=== PATIENT | male | born 1985 | race Hispanic/Latino ===

== ENCOUNTER 2017-03-18 01:32 | Emergency (ER) | payer SELFPAY ==
[~2017-03-18] VITALS: Ht 175.3 cm; Wt 91.8 kg
[~2017-03-18 01:32] MED LIST: BENADRYL DF25 MG IM; BENADRYL25 MG PO; DEPO-MEDROL80 MG/ML IM; NO; SOLU-MEDROL125 MG IM; [UNRECOGNIZED DRUG - OTHER]
[2017-03-18 02:57] VITALS: BP 122/68
== END 2017-03-18 03:00 | disposition home or self-care (01) | DRG 605 ==
LOC: ED 01:32
PROC: 0HQ0XZZ Repair Scalp Skin, External Approach (ICD-10-PCS; principal; 2017-03-18)
DX: S01.01XA Laceration without foreign body of scalp, initial encounter (principal); Y04.2XXA Assault by strike against or bumped into by another person, initial encounter; Y92.009 Unspecified place in unspecified non-institutional (private) residence as the place of occurrence of the external cause

== ENCOUNTER 2018-07-03 15:00 | Emergency (ER) | payer OTHER ==
[~2018-07-03] VITALS: Ht 175.3 cm; Wt 90.0 kg
[2018-07-03] MEDS ORDERED: MOTRIN400 MG PO (17:47)
[2018-07-03] MEDS ORDERED: HYDROCO/APAP1 TA9 PO (17:47)
[2018-07-03 18:08] VITALS: BP 157/92
== END 2018-07-03 18:30 | disposition home or self-care (01) | DRG 563 ==
LOC: ED 15:00
PROC: 2W3BXYZ Immobilization of Left Upper Arm using Other Device (ICD-10-PCS; principal; 2018-07-03)
DX: S42.022A Displaced fracture of shaft of left clavicle, initial encounter for closed fracture (principal); V80.010A Animal-rider injured by fall from or being thrown from horse in noncollision accident, initial encounter; Y93.K9 Activity, other involving animal care; Y92.79 Other farm location as the place of occurrence of the external cause